=== PATIENT | female | born 1960 | race Caucasian/White ===

== ENCOUNTER 2017-04-23 09:52 | Outpatient (CLI) | payer BC ==
--- NOTE | 2017-04-23 11:39 | RAD ---
FRONTAL VIEW ABDOMEN: CLINICAL HISTORY: Urolithiasis. Calculus of the kidney. COMPARISON: 03/10/2016 FINDINGS: There are punctate densities overlying the renal shadows bilaterally, although largely obscured by maciej wel content on the right and partially obscured on the left, which limits assessment. There are punc ho densities of the pelvis, indicating phleboliths. Osseous structures are stable and nonacute in appearance. IMPRESSION: Punctate densities overlying each renal shadow, difficult to further discern on the basis of this exa m, as there is prominent stool overlying the abdomen, related to constipation. POS: KRISH
--- NOTE | 2017-04-23 11:45 | ULT ---
RENAL SONOGRAM: DATE: 04/23/17. HISTORY: Renal calculus. COMPARISON: 03/10/16. FINDINGS: The kidneys demonstrate a normal sonographic appearance bilaterally without evidence of a renal mass or hydronephrosis. No obvious renal calculus is visualized. There is no perinephric fluid collectio n seen. The right kidney measures 8.7 cm x 3.4 cm with the left kidney measuring 9 cm x 4.3 cm. The urinary bladder is partially distended and has a normal sonographic appearance. On the prior examination, the echogenic mass within the right hepatic lobe was imaged and reported on the prior study. However, this mass was not imaged on today's exam. IMPRESSION: Normal-appearing bilateral kidneys without evidence of hydronephrosis, and no definite renal calculus is appreciated. POS: KRISH
== END 2017-04-23 09:53 | disposition home or self-care (01) ==
LOC: RAD 09:52
PROVIDERS: ATTEND Urology
DX: N20.0 Calculus of kidney (principal)
CPT/HCPCS: 74018; 76770

== ENCOUNTER 2017-12-02 14:31 | Outpatient (CLI) | payer BC | END 2017-12-02 14:32 | disposition home or self-care (01) | LOC: BICMAMMO 14:31 | PROVIDERS: ATTEND Family Medicine | DX: E55.9 Vitamin D deficiency, unspecified (principal); M85.89 Other specified disorders of bone density and structure, multiple sites | CPT/HCPCS: 77080 ==

== ENCOUNTER 2018-05-02 14:25 | Outpatient (CLI) | payer BC ==
[2018-05-02 14:55] LABS: Anion Gap 14 mmol/L (10-20); BUN (Urea Nitrogen) 15 mg/dL (9.8-20.1); Calc. Creatinine Clearance 0 mL/min (70-130); Calcium 9.5 mg/dL (7.8-10.44); Carbon Dioxide 28 mmol/L (22-29); Chloride 105 mmol/L (98-107); Estimated GFR-MDRD 78; Glucose 90 mg/dL (70-105); Potassium 3.8 mmol/L (3.5-5.1); Sodium 143 mmol/L (136-145)
[2018-05-02 15:04] LABS: Bilirubin Negative (Negative); Blood, Urine Negative (Negative); Clarity Clear (Clear); Glucose, Urine (Dipstick) Negative (Negative); Leukocyte Negative (Negative); Nitrite Negative (Negative); Protein, Urine (Dipstick) Negative (Neg-Trace); Urobilinogen 0.2 mg/dL (0.2-1.0)
--- NOTE | 2018-05-02 15:54 | ULT ---
ULTRASOUND RETROPERITONEUM COMPLETE: (RENAL) DATE: 05/02/2018. HISTORY: A 58-year-old female with calculus of kidney. FINDINGS: The right kidney measures 8.5 x 3.5 x 3 cm. The left kidney measures 9 x 4 x 4 cm. Both kidneys hav e normal cortical thickness and normal cortical echogenicity. There is no hydronephrosis. The urina ry bladder is almost empty and therefore difficult to evaluate. There are no moderate-sized or large renal cystic or solid lesions. IMPRESSION: 1) The kidneys are slightly small in size. 2) No focal renal abnormality identified. 3) Empty bladder. caty [] POS: KRISH
--- NOTE | 2018-05-02 15:56 | RAD ---
KUB: HISTORY: Followup of kidney stone. COMPARISON: A 04/23/2017 examination. The bowel gas pattern appears nonobstructive. The right renal outline is partially obscured by bowel gas. There are questionable tiny punctate calcifications overlying the lower pole region of the lef t kidney. These are very faint and is equivocal. I do not see any definite ureteral calculi. Calci fications within the pelvis appear to be phleboliths that are unchanged in position. IMPRESSION: Questionable punctate lower pole left renal calculi. The finding is equivocal. No definite ureteral calculus. POS: TPC
== END 2018-05-02 14:26 | disposition home or self-care (01) ==
LOC: SCSULT 14:25
PROVIDERS: ATTEND Urology
DX: N20.0 Calculus of kidney (principal); R35.0 Frequency of micturition; N27.1 Small kidney, bilateral
CPT/HCPCS: 36415; 74018; 76770; 80048; 81003; 87086

== ENCOUNTER 2020-02-05 13:29 | Outpatient (CLI) | payer BC ==
--- NOTE | 2020-02-05 14:35 | ULT ---
Exam: Thyroid ultrasound HISTORY: Thyroid nodule. FINDINGS: Thyroid isthmus: 0.21 cm Right thyroid lobe: 1.2 x 1.3 x 4.6 cm Left thyroid lobe: 1.6 x 1.1 x 4.5 cm Thyroid nodules: Right thyroid lobe: Predominantly anechoic focus with a soft tissue septation in the lower pole measu res 1.3 x 0.9 x 1.1 cm. There is a second similar echotexture focus in the mid pole near the thyroid isthmus measuring 0.6 x 0.6 x 1.1 cm. Left thyroid lobe: 0.7 x 1.0 x 0.5 cm solid nodule in the mid pole. 1.0 x 1.3 x 1.2 cm solid nodule i n the lower pole. Isthmus: Solid nodule in the thyroid isthmus measures 1.0 x 0.7 x 0.3 cm. IMPRESSION: Multiple solid nodules in the left thyroid lobe. TI-RADS level: TR 4, moderately suspicious. Follow-up ultrasound in one year. Transcribed Date/Time: 02/05/2020 4:05 PM
== END 2020-02-05 13:30 | disposition home or self-care (01) ==
LOC: BICULT 13:29
PROVIDERS: ATTEND Family Medicine
DX: E04.2 Nontoxic multinodular goiter (principal)
CPT/HCPCS: 76536

== ENCOUNTER 2020-02-12 09:33 | Outpatient (CLI) | payer BC ==
--- NOTE | 2020-02-12 10:04 | BD ---
EXAM: Bone densitometry using DEXA HISTORY: 59 yo female. Screening for postmenopausal osteoporosis FINDINGS: L1--bone mineral density 0.694 g/sq cm; T score -2.7 ; Z score -1.5 L2--bone mineral density 0.764 g/sq cm; T score -2.4 ; Z score -1.1 L3--bone mineral density 0.767 g/sq cm; T score -2.9 ; Z score -1.5 L4--bone mineral density 0.716 g/sq cm; T score -2.1 ; Z score -1.7 Total L1-L4--bone mineral density 0.735 g/sq cm; T score -2.8 ; Z score -1.5 Left femoral neck--bone mineral density0.598; T score -2.3 ; Z score -1.0 Total proximal left femur--bone mineral density 0.756; T score -1.5 ; Z score -0.6 IMPRESSION: Osteoporosis
== END 2020-02-12 09:34 | disposition home or self-care (01) ==
LOC: BICMAMMO 09:33
PROVIDERS: ATTEND Family Medicine
DX: M85.80 Other specified disorders of bone density and structure, unspecified site (principal); M81.0 Age-related osteoporosis without current pathological fracture
CPT/HCPCS: 77080

== ENCOUNTER 2020-09-24 12:19 | Outpatient (CLI) | payer BC | END 2020-09-24 12:20 | disposition home or self-care (01) | LOC: SCSRAD 12:19 → EDSTATUS 12:46 | PROVIDERS: ATTEND Chiropractor | DX: M54.6 Pain in thoracic spine (principal); M41.9 Scoliosis, unspecified; M25.78 Osteophyte, vertebrae; M51.34 Other intervertebral disc degeneration, thoracic region | CPT/HCPCS: 72070 ==

== ENCOUNTER 2021-02-13 10:23 | Outpatient (CLI) | payer BC | END 2021-02-13 10:24 | disposition home or self-care (01) | LOC: BICMAMMO 10:23 | PROVIDERS: ATTEND Family Medicine | DX: M81.0 Age-related osteoporosis without current pathological fracture (principal) | CPT/HCPCS: 77080 ==